=== PATIENT | male | born 1995 ===

== ENCOUNTER 2021-03-28 10:35 | Emergency (ER) | payer OTHER ==
--- NOTE | 2021-03-28 10:59 | ED ---
General Adult HPI - General Chief complaint: Shortness of Breath Stated complaint: Anxiety Time Seen by Provider: 03/28/21 10:40 Source: patient, EMS, RN notes reviewed Mode of arrival: EMS Limitations: no limitations - History of Present Illness Initial comments: this is a 25-year-old male presents emergency Department chief complaint of shortness of breath. Patient states he woke up this morning and felt that he could not breathe, states he started feeling very anxious and started panicking. This feels better at this point denies any chest pain, no significant past medical history. Patient states he received is coated 19 vaccine yesterday. Patient denies any abdominal complaints no leg swelling no medications or known drug ALLERGIES. - Related Data Allergies Allergy/AdvReac Type Severity Reaction Status Date / Time No Known Allergies Allergy Verified 03/28/21 10:42 Review of Systems ROS Statement: Those systems with pertinent positive or pertinent negative responses have been documented in the HPI. ROS Other: All systems not noted in ROS Statement are negative. Past Medical History Past Medical History: No Reported History History of Any Multi-Drug Resistant Organisms: None Reported Past Surgical History: No Surgical Hx Reported Past Psychological History: No Psychological Hx Reported Smoking Status: Never smoker Past Alcohol Use History: None Reported Past Drug Use History: Marijuana General Exam Limitations: no limitations General appearance: alert, in no apparent distress Head exam: Present: atraumatic, normocephalic, normal inspection Eye exam: Present: normal appearance, PERRL, EOMI. Absent: scleral icterus, conjunctival injection, periorbital swelling ENT exam: Present: normal exam, normal oropharynx, mucous membranes moist Neck exam: Present: normal inspection. Absent: tenderness, meningismus, lymphadenopathy Respiratory exam: Present: normal lung sounds bilaterally. Absent: respiratory distress, wheezes, rales, rhonchi, stridor Cardiovascular Exam: Present: regular rate, normal rhythm, normal heart sounds. Absent: systolic murmur, diastolic murmur, rubs, gallop, clicks GI/Abdominal exam: Present: soft, normal bowel sounds. Absent: distended, tenderness, guarding, rebound, rigid Course Vital Signs 03/28/21 10:39 Temperature 98 F Pulse Rate 79 Respiratory 20 Rate O2 Sat by Pulse 99 Oximetry Medical Decision Making - Medical Decision Making Patient presented for acute anxiety attack after waking up feeling short of breath. Patient is a symptomatically discharged in stable condition. Vitals are stable. Disposition Clinical Impression: Anxiety Disposition: HOME SELF-CARE Condition: Stable Instructions (If sedation given, give patient instructions): Anxiety (ED) Additional Instructions: Please return to the Emergency Department if symptoms worsen or any other concerns. Is patient prescribed a controlled substance at d/c from ED?: No Referrals: None,Stated [Primary Care Provider] - 1-2 days Time of Disposition: 11:59
--- NOTE | 2021-03-28 11:40 | XR ---
EXAMINATION TYPE: XR chest 2V DATE OF EXAM: 03/28/2021 COMPARISON: NONE HISTORY: Shortness of breath TECHNIQUE: Frontal and lateral views of the chest are obtained. FINDINGS: There is no focal air space opacity, pleural effusion, or pneumothorax seen. The cardiac silhouette size is within normal limits. The osseous structures are intact. IMPRESSION: No acute cardiopulmonary process.
[2021-03-28 12:42] VITALS: BP 120/88; PULSE 78; RESP 18; TEMP 98.5
== END 2021-03-28 12:41 | disposition home or self-care (01) ==
LOC: EC 10:35
DX: F41.9 Anxiety disorder, unspecified (principal); R06.02 Shortness of breath
CPT/HCPCS: 71046; 99285